=== PATIENT | male | born 2005 | race Caucasian/White ===

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

== ENCOUNTER 2024-04-28 15:46 | Emergency (ER) | payer SELFPAY ==
[2024-04-28 15:51] VITALS: BP 107/67; PULSE 87; RESP 16; TEMP 36.8; O2SAT 95
--- NOTE | 2024-04-28 15:51 | XRR_ITS ---
PROCEDURE INFORMATION: Exam: XR Right Shoulder Exam date and time: 04/28/2024 3:56 PM Age: 19 years old Clinical indication: Injury or trauma; Other: Dislocated shoulder; Blunt trauma (contusions or hematomas); Right TECHNIQUE: Imaging protocol: Radiologic exam of the right shoulder. Views: 2 or more views. COMPARISON: CR XR shoulder RT min 2V* [id number] 05/25/2021 1:47 PM FINDINGS: Bones/joints: Anterior shoulder dislocation. There is no evidence of acutely displaced skeletal fractures. No aggressive osseous lesions. Soft tissues: Visualized chest is unremarkable. No acute soft tissue findings. XR/XR shoulder RT min 2V* [id number] IMPRESSION: Anterior shoulder dislocation.
--- NOTE | 2024-04-28 16:06 | XRR_ITS ---
PROCEDURE INFORMATION: Exam: XR Right Shoulder Exam date and time: 04/28/2024 4:09 PM Age: 19 years old Clinical indication: Injury or trauma; Other: Shoulder dislocation; Blunt trauma (contusions or hematomas); Right; Additional info: Post reduction TECHNIQUE: Imaging protocol: Radiologic exam of the right shoulder. Views: 2 or more views. COMPARISON: CR XR shoulder RT min 2V* [id number] 04/28/2024 3:56 PM FINDINGS: Bones/joints: Normal anatomic alignment. There is no evidence of acutely displaced skeletal fractures. There is no evidence of joint dislocation. No aggressive osseous lesions. Soft tissues: Visualized chest is unremarkable. No acute soft tissue findings. XR/XR shoulder RT min 2V* [id number] IMPRESSION: Successful reduction of prior anterior shoulder dislocation, now in normal anatomic alignment.
--- NOTE | 2024-04-28 16:07 | ED_ITS ---
HPI - Extremity Problem General: Chief complaint: Extremity Problem,Nontraumatic Stated complaint: dislocated shoulder Time Seen by Provider: 04/28/24 15:49 Source: patient and EMS Mode of arrival: EMS Limitations: no limitations History of Present Illness: 19-year-old male who has had history of multiple shoulder dislocations in the past he states that he was at his hands behind his head down and popped his right shoulder out he states he is typically able to reduce it at home on his own and was not able to and called EMS he does have pain he rates an 8 out of 10 denies any other injuries Associated symptoms: Deny chest pain, fever(s) or rash Review of Systems Const: Denies: fever(s), chills, body aches or change in appetite ENMT: Denies: throat pain or dental pain Card: Denies: chest pain Resp: Denies: dyspnea GI: Denies: abdominal pain, nausea, vomiting or diarrhea Musc: Reports: extremity pain; Denies: neck pain or back pain Skin/Breast: Denies: rash Neuro: Denies: headache(s) PFSH ED PFSH: Family History Mother Epilepsy Social History Smoking and tobacco/nicotine status: never used tobacco/nicotine Physical Exam Const: COMMON NORMALS: no acute distress, patient oriented x3 and healthy appearing HENMT: COMMON NORMALS: normocephalic and atraumatic HEAD & SCALP: normocephalic and atraumatic Eye: COMMON NORMALS: Equal, round and reactive pupils present and EOMs intact bilaterally PUPIL: Yes Equal, round and reactive pupils present Neck/C-Spine: COMMON NORMALS: full ROM and supple Chest: COMMONS NORMALS: normal inspection of the chest Resp: COMMON NORMALS: normal respiratory effort Cardio: COMMON NORMALS: regular rate, regular rhythm and No murmurs present (Cardio) RATE: regular rate RHYTHM: regular rhythm Extremity: NARRATIVE EXTREMITY EXAM: Obvious dislocation to right shoulder Neuro: COMMON NORMALS: patient oriented x3, moves all extremities and no focal motor deficits Psych: COMMON NORMALS: mental status grossly normal, Normal thought process present and cooperative THOUGHT PROCESS: Normal thought process present Skin: COMMON NORMALS: no rashes or lesions noted and no wounds GENERAL SKIN EXAM: no rashes or lesions noted Procedures Orthopedic Joint Reduction Joint #1: Time Out Performed: Yes Side: right Joint Reduction Location: shoulder Shoulder Technique Used (if applicable): traction/counter-traction Post-reduction neuro exam: intact Post-reduction vascular: intact Post Reduction X-Ray Obtained: Yes Post Reduction X-Ray Results: reduced Splint Applied: Yes Patient Tolerated Procedure: well Course Vital Signs: Vital signs: Vital Signs Temperature 98.2 F 04/28/24 15:51 Pulse Rate 63 04/28/24 16:23 Respiratory Rate 16 04/28/24 15:51 Blood Pressure 133/97 04/28/24 16:23 Pulse Oximetry 94 04/28/24 16:23 MDM - Extremity (Nontraumatic) Medical Decision Making Patient presents here with dislocated shoulder was reduced here he is stable for discharge she is follow-up with orthopedics return if worsening Medical Records I reviewed the patient's medical records. Lab Data Radiology Impressions Shoulder X-Ray 04/28/24 16:06 IMPRESSION: Successful reduction of prior anterior shoulder dislocation, now in normal anatomic alignment. All radiology interpretation(s) finalized by discharge Discharge Plan Discharge Patient Disposition: Home Clinical Impression: Dislocation of shoulder, right, closed Condition: Stable Prescriptions: No Action lamotrigine 300 mg tablet extended release 24hr See Rx Instructions .ROUTE .COMPLEX Qty: 30 0RF Dose Instruction: TAKE 1 TABLET BY MOUTH DAILY MUST HAVE APPOINTMENT PRIOR TO MORE REFILLS Rx Instructions: TAKE 1 TABLET BY MOUTH DAILY MUST HAVE APPOINTMENT PRIOR TO MORE REFILLS levetiracetam 500 mg tablet extended release 24 hr 500 mg PO DAILY Qty: 90 3RF Discharge Orders: Discharge ED (Routine); Ordered 04/28/24 Ordered By: Jem Kramer Referrals: Adrian Cabral MD [Primary Care Provider] - Charity Card MD [Physician] - 1-3 days Discharge Diet: Advance as tolerated Discharge Activity: Resume usual activity Patient Instructions: Shoulder Dislocation (ED), Closed Reduction (ED) Coding Level of Care Code ED Grab Jack Worker for [place] Pinto
--- NOTE | 2024-04-28 16:10 | DCPLANNER ---
Please Schedule for Follow-Up: Patient was seen in ER today for a shoulder dislocation
[2024-04-28 16:23] VITALS: BP 133/97; PULSE 63; O2SAT 94
== END 2024-04-28 16:25 | disposition home or self-care (01) ==
PROVIDERS: Emergency Provider Emergency Medicine; PCP Family Medicine
DX: S43.004A Unspecified dislocation of right shoulder joint, initial encounter (principal); X50.9XXA Other and unspecified overexertion or strenuous movements or postures, initial encounter
CPT/HCPCS: 23650; 73030; 99283

== ENCOUNTER 2025-05-29 19:41 | Emergency (ER) | payer SELFPAY ==
--- NOTE | 2025-05-29 19:55 | W.ED.SEIZURE ---
HPI - Seizure General: Chief Complaint: General Medical Stated Complaint: out of seizure meds Time Seen by Provider: 05/29/25 19:44 History of Present Illness: HPI Narrative: Patient is a 20-year-old gentleman that is established with primary and neurologist, however when he ran out of his medication this weekend, his pharmacy was not open. No breakthrough seizures. This is the first day he has not had his medication. He is here to receive his medication, and have a refill that he can get tomorrow. Associated symptoms: Deny chest pain Related Data Previous Rx's ?Medication ?Instructions ?Recorded lamotrigine 300 mg tablet,extended See Rx Instructions .Route 11/09/24 release 24 hr .COMPLEX #90 tabs levetiracetam 500 mg 500 mg PO DAILY 90 days #90 tabs 11/09/24 tablet,extended release 24 hr lamotrigine 300 mg tablet,extended 300 mg PO DAILY 30 days #30 tabs 05/29/25 release 24 hr levetiracetam 500 mg 500 mg PO DAILY 30 days #30 tabs 05/29/25 tablet,extended release 24 hr (Keppra XR) Allergies Allergy/AdvReac Type Severity Reaction Status Date / Time No Known Allergies Allergy Verified 10/28/24 11:43 Review of Systems General: Reports: 10 or more systems reviewed and unremarkable except in HPI and below Eyes: Denies: change in vision or blurry vision ENMT: Denies: throat pain Card: Denies: chest pain or palpitations Resp: Denies: dyspnea or productive cough GI: Denies: abdominal pain, nausea or vomiting : Denies: flank pain or difficulty urinating Musc: Denies: neck pain or back pain Skin/Breast: Denies: rash or pruritus Neuro: Denies: headache(s), numbness in extremities, weakness in extremities, difficulty walking or Slurred speech present Psych: Denies: anxiety Endo: Denies: polyuria or polydipsia PFSH ED PFSH: Family History Mother Epilepsy Social History Smoking and tobacco/nicotine status: never used tobacco/nicotine Physical Exam Const: COMMON NORMALS: no acute distress, average body habitus and patient oriented x3 HENMT: COMMON NORMALS: normocephalic and atraumatic HEAD & SCALP: normocephalic and atraumatic Neck/C-Spine: COMMON NORMALS: full ROM and no lymphadenopathy Lymph: LYMPHATIC: no lymphadenopathy noted Chest: COMMONS NORMALS: normal inspection of the chest and normal palpation of entire chest wall Resp: COMMON NORMALS: normal respiratory effort and No retractions Cardio: COMMON NORMALS: regular rate and regular rhythm RATE: regular rate RHYTHM: regular rhythm GI: COMMON NORMALS: Normal to inspection, nondistended, normoactive bowel sounds present and Soft to palpation AUSCULTATION: Yes normoactive bowel sounds PALPATION: Yes Soft to palpation : COMMON NORMALS: Yes no CVA tenderness BLADDER/KIDNEY EXAM: Yes no CVA tenderness Back/Pelvis: COMMON NORMALS: no CVA tenderness Extremity: COMMON NORMALS: normal to inspection, full ROM and capillary refill normal Neuro: COMMON NORMALS: patient oriented x3 Psych: COMMON NORMALS: mental status grossly normal and Normal thought process present THOUGHT PROCESS: Normal thought process present Course Vital Signs: Vital signs: Vital Signs Temperature 98.0 F 05/29/25 19:59 Pulse Rate 68 05/29/25 19:59 Respiratory Rate 16 05/29/25 19:59 Blood Pressure 130/71 05/29/25 19:59 Pulse Oximetry 99 05/29/25 19:59 Oxygen Delivery Me thod Room Air 05/29/25 19:59 MDM - Seizure No radiology studies performed this visit Discharge Plan Discharge Patient Disposition: Home Clinical Impression: Primary generalized epilepsy, major Condition: Stable Prescriptions: New lamotrigine 300 mg tablet extended release 24hr 300 mg PO DAILY 30 Days Qty: 30 0RF levetiracetam [Keppra XR] 500 mg tablet extended release 24 hr 500 mg PO DAILY 30 Days Qty: 30 0RF No Action levetiracetam 500 mg tablet extended release 24 hr 500 mg PO DAILY 90 Days Qty: 90 3RF lamotrigine 300 mg tablet extended release 24hr See Rx Instructions .ROUTE .COMPLEX Qty: 90 3RF Dose Instruction: TAKE 1 TABLET BY MOUTH EVERY DAY Rx Instructions: TAKE 1 TABLET BY MOUTH EVERY DAY Discharge Orders: Discharge ED (Routine); Ordered 05/29/25 Ordered By: Dia Ray Referrals: Adrian Cabral MD [Primary Care Provider, Family Practice] Discharge Diet: Usual diet Discharge Activity: Resume usual activity Patient Instructions: Epilepsy (ED), Patient Portal & Michael Instructions Activity Restrictions/Additional Instructions: It is important to follow-up with your primary care physician for additional management of your seizure disorder. Print Language: Peruvian Coding Level of Care Code ED Data Operations Director for [place] Pinto
[2025-05-29 19:59] VITALS: BP 130/71; PULSE 68; RESP 16; TEMP 36.7; O2SAT 99; BMI 16.8
== END 2025-05-29 20:37 | disposition home or self-care (01) ==
PROVIDERS: Emergency Provider Physician Assistant; PCP Family Medicine
DX: G40.409 Other generalized epilepsy and epileptic syndromes, not intractable, without status epilepticus (principal); Z76.0 Encounter for issue of repeat prescription; Z79.899 Other long term (current) drug therapy
CPT/HCPCS: 99283; J9999